=== PATIENT | female | born 1960 | race American Indian/Alaskan Native ===

== ENCOUNTER → 2019-11-15 | Day surgery (SDC) | payer OTHER ==
[~2019-11-15] MED LIST: PROAIR HFA8.5 GM IH; SYNTHROID137 MCG PO; TOPROL XL25 M1 PO; TYLENOL325 MG PO
== END | disposition home or self-care (01) ==
LOC: ADM 11-12 10:30 → CIR.AMB 05:18
DX: D26.0 Other benign neoplasm of cervix uteri (principal); D25.0 Submucous leiomyoma of uterus